=== PATIENT | female | born 1985 | race Caucasian/White ===

== ENCOUNTER 2022-11-08 08:23 | Outpatient (CLI) | payer BC, SELFPAY ==
[2022-11-08 15:15] LABS: Chloride* 107 mmol/L (96-114)
[2022-11-08 15:16] LABS: Potassium* 4.2 mmol/L (3.6-5.1); Sodium* 140 mmol/L (135-149)
[2022-11-08 15:18] LABS: Carbon Dioxide* 25 mmol/L (20-32); Cholesterol* 134 mg/dL (90-199); Creatinine* 0.7 mg/dL (0.5-1.5); Estimated Glomerular Filt Rate 114 ml/min
[2022-11-08 15:19] LABS: Blood Urea Nitrogen* 14 mg/dL (5-24); Calcium* 9.1 mg/dL (8.4-10.6); Glucose* 91 mg/dL (60-115); HDL Cholesterol* 56 mg/dL (>=50); LDL Cholesterol Calculated 64 mg/dL (<100); Triglycerides* 71 mg/dL (40-149)
== END 2022-11-08 08:24 | disposition home or self-care (01) ==
PROVIDERS: PCP Family Medicine; Visit Provider Family Medicine
DX: E03.9 Hypothyroidism, unspecified (principal); Z13.6 Encounter for screening for cardiovascular disorders
CPT/HCPCS: 80048; 80061; 84443

== ENCOUNTER 2023-04-24 08:14 | Outpatient (CLI) | payer BC, SELFPAY | END 2023-04-24 08:15 | disposition home or self-care (01) | LOC: NFLDREF 15:43 | PROVIDERS: PCP Family Medicine; Referring Provider Family Medicine; Visit Provider Family Medicine | DX: E03.9 Hypothyroidism, unspecified (principal) | CPT/HCPCS: 84443 ==

== ENCOUNTER 2024-05-13 09:14 | Outpatient (CLI) | payer BC, SELFPAY | END 2024-05-13 09:15 | disposition home or self-care (01) | PROVIDERS: PCP Family Medicine; Visit Provider Family Medicine | DX: Z00.00 Encounter for general adult medical examination without abnormal findings (principal); E03.9 Hypothyroidism, unspecified; E66.09 Other obesity due to excess calories; K43.9 Ventral hernia without obstruction or gangrene; Z13.9 Encounter for screening, unspecified | CPT/HCPCS: 80048; 80061; 84443 ==

== ENCOUNTER 2025-01-18 10:14 | Outpatient (CLI) | payer BC, SELFPAY ==
[2025-01-18 14:09] LABS: Clue Cells <20% Clue Cells Seen (None Seen); Trichomonas No Trichomonas Seen (None Seen); Yeast No Yeast Seen (None Seen)
== END 2025-01-18 10:15 | disposition home or self-care (01) ==
LOC: FBOREF 10:57
PROVIDERS: PCP Family Medicine; Visit Provider Family Medicine
DX: N89.8 Other specified noninflammatory disorders of vagina (principal)
CPT/HCPCS: 87210

== ENCOUNTER 2025-08-16 11:29 | Outpatient (CLI) | payer BC, SELFPAY | END 2025-08-16 11:30 | disposition home or self-care (01) | LOC: FBOREF 11:29 | PROVIDERS: PCP Family Medicine; Visit Provider Family Medicine | DX: R53.83 Other fatigue (principal) | CPT/HCPCS: 84439; 84443 ==

== ENCOUNTER 2025-08-23 13:40 | Outpatient (CLI) | payer BC, SELFPAY ==
--- NOTE | 2025-08-23 14:00 | CRLHL7_ITS ---
For Patients: As a result of the Cures Act, medical imaging exams and procedure reports are released immediately into your electronic medical record. You may view this report before your referring provider. If you have questions, please contact your health care provider. BILATERAL DIGITAL SCREENING MAMMOGRAM WITH COMPUTER-AIDED DETECTION AND TOMOSYNTHESIS CLINICAL HISTORY: Routine screening exam. COMPARISON: 10/30/2021, 10/24/2021. TECHNIQUE: Digital mammogram in CC and MLO projections including computer-aided detection (CAD). Tomosynthesis was used in this interpretation. BREAST COMPOSITION: There are scattered areas of fibroglandular density. FINDINGS: RIGHT Breast: Nodular density within the lower outer quadrant 6 cm from the nipple. LEFT Breast: No suspicious findings. IMPRESSION: RIGHT breast asymmetry/mass. RECOMMENDATIONS: Additional mammographic views of the RIGHT breast including 3D spot-compression CC/MLO. RIGHT breast ultrasound may also be required. The [facility] will contact the patient. A lay language report of this examination will be provided to the patient. BI-RADS Category 0: Incomplete: Need Additional Imaging Evaluation Dictated by Barry Mac MD @ 08/24/2025 9:09:24 AM DW/Dictated by: Barry Mac MD @ 08/24/2025 9:09:00 AM (Electronically Signed)
--- NOTE | 2025-08-23 14:45 | CRLHL7_ITS ---
For Patients: As a result of the Century Cures Act, medical imaging exams and procedure reports are released immediately into your electronic medical record. You may view this report before your referring provider. If you have questions, please contact your health care provider. INDICATION: ABNORMAL UTERINE AND VAGINAL BLEEDING COMPARISON: None. TECHNIQUE: 2D becerra-scale and color Doppler images were acquired of the pelvis using a transabdominal and transvaginal approach. Transvaginal imaging performed to better visualize the endometrial stripe and ovaries. FINDINGS: Sonographic images demonstrate a normal size and smooth outer contour of the uterus. Uterus measures 9.8 cm in length by 5.5 cm in AP diameter by 5.2 cm in transverse dimension. The myometrium has a normal uniform echotexture. The endometrial lining measures 18.2 mm in composite thickness. The right ovary measures 5.2 x 2.2 x 3.6 cm in size and the left ovary measures 3.4 x 1.7 x 2.4 cm. The ovaries demonstrate normal arterial and venous blood flow on color Doppler analysis. There are no suspicious fluid collections within the cul-de-sac. Hypoechoic left ovarian cyst measures 3.4 x 1.7 x 2.4 cm. IMPRESSION: Endometrial thickness is 18.2 millimeters. No uterine fibroid. Benign left ovarian cyst measures 3.4 cm. Dictated by Barry Mac MD @ 08/23/2025 3:08:02 PM (Electronically Signed)
== END 2025-08-23 13:41 | disposition home or self-care (01) ==
LOC: MAMMO 13:40
PROVIDERS: PCP Family Medicine; Visit Provider Family Medicine
DX: Z12.31 Encounter for screening mammogram for malignant neoplasm of breast (principal); N63.10 Unspecified lump in the right breast, unspecified quadrant; N93.9 Abnormal uterine and vaginal bleeding, unspecified; R93.89 Abnormal findings on diagnostic imaging of other specified body structures
CPT/HCPCS: 76830; 76856; 77063; 77067

== ENCOUNTER 2025-09-03 09:37 | Outpatient (CLI) | payer BC, SELFPAY ==
--- NOTE | 2025-09-03 09:45 | CRLHL7_ITS ---
For Patients: As a result of the Cures Act, medical imaging exams and procedure reports are released immediately into your electronic medical record. You may view this report before your referring provider. If you have questions, please contact your health care provider. RIGHT DIAGNOSTIC MAMMOGRAM WITH TOMOSYNTHESIS RIGHT BREAST ULTRASOUND CLINICAL HISTORY: RIGHT breast mass/asymmetry. COMPARISON: 08/23/2025, 10/30/2021, 10/24/2021. TECHNIQUE: Digital RIGHT mammogram in two projections. Tomosynthesis was used in this interpretation. Real-time ultrasound imaging of RIGHT breast with imaging documentation. Scanning was performed by both the technologist and the radiologist. BREAST COMPOSITION: The breasts are heterogeneously dense, which may obscure small masses. FINDINGS: 3D spot compression CC/MLO RIGHT breast mammogram images submitted. Persistent nodular density within the lower outer quadrant. No architectural distortion. Stable fibroadenoma in the upper-outer quadrant. Targeted RIGHT breast ultrasound performed at 7 o`clock, 6 cm from the nipple. In this location there is a solid hypoechoic nodule with circumscribed margins which measures 2.8 x 1.2 x 1.8 cm. The morphology is similar to the previously biopsied fibroadenoma in the upper-outer quadrant. IMPRESSION: Benign fibroadenoma RIGHT breast 7 o`clock, 6 cm from the nipple, measuring 2.8 cm. RECOMMENDATIONS: Routine screening mammography. A lay language report of this examination will be provided to the patient. BI-RADS Category 2: Benign Dictated by Barry Mac MD @ 09/03/2025 11:51:52 AM /sp SP/Dictated by: Barry Mac MD @ 09/03/2025 11:51:00 AM (Electronically Signed)
--- NOTE | 2025-09-03 10:15 | CRLHL7_ITS ---
For Patients: As a result of the Century Cures Act, medical imaging exams and procedure reports are released immediately into your electronic medical record. You may view this report before your referring provider. If you have questions, please contact your health care provider. PLEASE SEE RIGHT BREAST DIAGNOSTIC MAMMOGRAM PERFORMED SAME DAY. CRL:sp SP/Dictated by: Barry Mac MD @ 09/03/2025 11:49:00 AM (Electronically Signed)
== END 2025-09-03 09:38 | disposition home or self-care (01) ==
LOC: MAMMO 09:37
PROVIDERS: PCP Family Medicine; Visit Provider Family Medicine
DX: N63.10 Unspecified lump in the right breast, unspecified quadrant (principal); R92.333 Mammographic heterogeneous density, bilateral breasts; R92.8 Other abnormal and inconclusive findings on diagnostic imaging of breast
CPT/HCPCS: 76642; 77065; G0279

== ENCOUNTER 2025-09-06 10:25 | Outpatient (CLI) | payer BC, SELFPAY | END 2025-09-06 10:26 | disposition home or self-care (01) | PROVIDERS: PCP Family Medicine; Visit Provider Family Medicine | DX: Z01.818 Encounter for other preprocedural examination (principal); L40.9 Psoriasis, unspecified | CPT/HCPCS: 80048; 85025 ==

== ENCOUNTER 2025-09-07 06:27 | Day surgery (SDC) | payer BC, SELFPAY ==
[2025-09-07] VITALS (20 sets, daily range): BP systolic 95–112; BP diastolic 58–68; PULSE 69–115; RESP 14–20; TEMP 36.4–37.2; O2SAT 94–100; BMI 29.5
[2025-09-07] MEDS: SODIUM CHLORIDE 0.9 % (FLUSH) 10 ML SYRINGE IVF (07:34)
[2025-09-07] MEDS: LACTATED RINGERS 1000 ML 1,000 ML 100 ML IV ×3 (07:34→12:54)
[2025-09-07 07:41] LABS: Hemoglobin* 13.3 gm/dL (12.0-16.0)
[2025-09-07 07:44] LABS: Ur HCG Qualitative* Negative (Negative)
[2025-09-07] MEDS: GABAPENTIN 600 MG TABLET PO (07:45)
[2025-09-07] MEDS: ACETAMINOPHEN 500 MG TABLET 1000 MG PO ×2 (07:45→15:04)
[2025-09-07] MEDS: SCOPOLAMINE 1 MG/3 DAY PATCH 1 PATCH TRANSDERMA (07:45)
[2025-09-07 07:51] LABS: Creatinine* 0.7 mg/dL (0.5-1.5); Est. Creatinine Clearance* 92.25; Estimated Glomerular Filt Rate 112 ml/min
--- NOTE | 2025-09-07 08:44 | W.PM.H&PU ---
History & Physical Update History & Physical Update H&P Reviewed and patient assessed: No changes noted
--- NOTE | 2025-09-07 08:44 | W.PM.GYNPROC ---
Procedure Note Time Seen by Provider: 09:00 Date of procedure: 09/07/25 Will [facility] bill your pro fee for this procedure?: Yes Pre-op diagnosis: Abnormal uterine bleeding, chronic pelvic pain, pelvic organ prolapse. Post-op diagnosis: Same Procedure: Laparoscopic assisted vaginal hysterectomy, bilateral salpingectomy, bilateral uterosacral ligament suspension, posterior colporrhaphy, perineorrhaphy, cystoscopy. Anesthesia: GETA Complications: None Surgeon: Kleber Buchanan MD Plate Stacker Hand: Marlene Clark Estimated blood loss (mL): 50 IV fluids (mL): 2,000 Urine Output (mL): 200 Pathology: specimen obtained, sent to pathology (Uterus, bilateral fallopian tubes ) Condition: stable Disposition: floor Findings: Normal external genitalia. Uterine prolapse grade 3. Anterior vaginal wall prolapse grade 2, posterior vaginal wall prolapse grade 2. Intra abdominal survey: grossly normal intestine, liver, stomach, appendix. Grossly normal bilateral fallopian tubes and ovaries, a small hemorrhagic cyst of the left ovary noted of about 1-2 cm. Uterus of about 8-9cm. No evidence of pelvic endometriosis, no pelvic adhesions. Cystoscopy completed twice, both times bladder mucosa found intact w/o evidence of suture material and bilateral ureteral jets noted. Procedure Description: DESCRIPTION OF PROCEDURE: After obtaining informed consent, the patient was taken to the operating room where general anesthesia was obtained without difficulty. She was prepared and draped in the normal sterile fashion in the low dorsal lithotomy position. A Rivera catheter was inserted into the bladder and left to drain by gravity. A medium Graves open-sided speculum was introduced into the vagina. The cervix was visualized and a Hulka manipulator was introduced easily. I then changed gloves and my attention was turned to the abdomen. The superior aspect of the umbilical fold was injected with 1% lidocaine with epi and 0.25% Bupivacaine. A 5 mm vertical incision was then made within the umbilical fold using a scalpel. A direct entry technique was used, a 5 mm laparoscopic port with CO2 gas set at 5mmHg was introduced under direct visualization. The trocar was removed leaving the sleeve in place. The CO2 gas flow was turned to high flow to achieve pneumoperitoneum. The 5 mm laparoscope was used then to carefully inspect the abdomen and pelvis with findings noted above. Pictures were taken for documentation purposes. The patient was placed in Trendelenburg positioning. Two additional ports were placed in the right and left lower quadrants under direct visualization after first anesthetizing the skin and fascia. Once the ports were in place, the pelvis was thoroughly inspected for evidence of endometriosis implants, picture taken for documentation purposes, no evident endometriosis implants noted in the pelvis. Start of hysterectomy then was continued as followed. The left tube was elevated with a graspers. The Thunderbeat bipolar device was used to dissect the tube from it's ovarian and broad ligament and cornual attachments before removing the tube through a lower port. Excellent hemostasis was obtained. The left utero-ovarian ligament was then sealed and transected in a wide swath with the Thunderbeat. Hemostasis secured. The left round ligament was then sealed in a wide swath and transected with the Thunderbeat, excellent hemostasis was obtained. The right tube was elevated with a graspers. The Thunderbeat bipolar device was used to dissect the tube from it's ovarian and broad ligament and cornual attachments before removing the tube through a lower port. Excellent hemostasis was obtained. The right utero-ovarian ligament sealed and transected in a wide swath with the Thunderbeat device. Hemostasis secured. The right round ligament was then sealed in a wide swath and transected with the Thunderbeat, excellent hemostasis was obtained. At this time, procedure was continued vaginally. The gas was released from the abdomen, ports were left in place for ease of intra abdominal access if needed. The abdomen was covered with sterile drape. A weighted speculum was placed into the vagina and a small [place] placed anteriorly. The anterior and posterior lip of the cervix grasped with thyroid Kayla clamps. With outward traction applied diluted Vasopressin was injected circumferentially into the cervicovaginal junction for hydrodissection purposes. Afterwards a circumferential incision was made with the scalpel at the cervical vaginal junction. Incision was carried down to the para cervical fascia, allowing the cervix to separate from the vagina mucosa. Minimal bleeding encountered. Separation of the anterior vaginal mucosa from uterus performed bluntly with moist gauze and performed until peritoneal reflection identified, this was picked up and entered sharply with Chacon scissors. A right angle retractor was inserted into the vesicouterine space. Attention was then placed to the posterior vagina, where blunt dissection also utilized until identification of the posterior peritoneum, this was grasped with pickups and entered sharply with Cosmo scissors with the tip pointing to the uterus. Clear peritoneal fluid was noted. The weighted speculum was removed in a long Bertrand speculum was inserted into the cul-de-sac. The uterosacral ligaments were clamped with Shana clamps, cut, and suture ligated. Follow-up were the cardinal and uterine vessels were identified, clamped, cut and suture ligated. Hemostasis secured. A small portion of the broad ligaments were also clamped, cut and suture ligated bilaterally and completed hysterectomy. The uterus was removed through the vagina. Again, hemostasis noted. Packing of the intestines performed utilizing surgical laps and starting on the patient's right, previously tagged uterosacral ligament was kept on tension and two 0 PDS sutures where anchored into the uterosacral ligament approximately 1 and 2cm above the level of the ischial spine. The same procedure was performed on the left side. Cystoscopy was then performed and PDS sutures where held on tension while cystoscopy was performed, and bilateral brisk ureteral efflux was confirmed. The uterosacral ligament suspension sutures were then placed through the vaginal apex bilaterally and held. At this time it was noted that the anterior vaginal wall was actually well supported, had normal rugae and might not need a repair after tying down apical suspension sutures. So decision was made to tie down the uterosacral ligament sutures thus suspending the vaginal apex and close the vaginal cuff. The vaginal cuff was closed with Vicryl 2-0 in a horizontal fashion in multiple interrupted figure of 8 sutures. Cystoscopy was repeated and bladder inspected. No lesions, tumors, stones or foreign objects in bladder. Bilateral ureteral jets were visualized. With this suspension it was evident the reduction of the anterior vaginal wall prolapse, decision was made not to perform an anterior repair. Decision was made to complete a posterior repair, noted to still be significant after suspension. Attention was then placed to posterior vaginal wall. The posterior hymen was grasped with 2 Allis clamps to allow entry of three fingers. Midline vagina was marked utilizing Allis clamp. The area of anticipated dissection was injected with dilute vasopressin. A midline incision was made with scalpel from the perineum to the proximal border of the posterior wall defect. Vaginal epithelium was then dissected off of the underlying rectovaginal connective tissue. The rectovaginal fibromuscular layer was then plicated in the midline utilizing interrupted sutures of Vicryl 2-0. The excess vaginal tissue was trimmed. Vaginal epithelium reapproximated with Vicryl 2-0 in a continuous interlocking fashion. A perineorrhaphy followed. Perineum infiltrated with dilute vasopressin and scalpel utilized to create an inverted triangle shape incision between Allis clamps at the level of the hymen as the base and the tip at midline perineum. This skin was bluntly dissected. The bulbocavernous muscles were plicated in the midline with Vicryl 2-0, followed by the transverse perineal muscles. The midline incision was then closed in a running fashion using Vicryl 2-0. Hemostasis secured. No need for vaginal packing noted. All instruments were removed from the vagina, and all counts were correct x2. Attention was once again turned to the abdomen. The abdomen and pelvis were again irrigated and inspected for hemostasis. Evangelista was placed over excision sites to further secure hemostasis. All instruments were then removed under direct visualization. Pneumoperitoneum was allowed to escape. The skin at all port sites was closed in a subcuticular fashion with 4-0 Monocryl. LiquiBand was then placed over the incisions. The patient tolerated the procedure well. Sponge, lap, needle, and instrument counts were reported as correct x2. The patient was taken to the recovery room awake and in stable condition. She did receive Ancef 2 g at start of procedure and a second dose was repeated after 3 hours in surgery. PATHOLOGY SPECIMEN(S): Uterus,bilateral fallopian tubes.
[2025-09-07] MEDS: LIDOCAINE 1%-EPI 1:100,000 20 ML INFILTRATI (09:29)
[2025-09-07] MEDS: BUPIVACAINE 0.25% 30 ML INJECTION (09:29)
[2025-09-07] MEDS: 0.9% SODIUM CHL 50 ML VIAL INJECTION (10:00)
[2025-09-07] MEDS: CEFAZOLIN 2 GM INJ IVP (12:06)
--- NOTE | 2025-09-07 13:24 | P.ANES_ITS ---
Anesthesia Charges Start Date/Time Anesthesia Start Date: 09/07/25 Anesthesia Start Time: 08:46 Stop Date/Time Anesthesia Stop Date: 09/07/25 Anesthesia Stop Time: 13:26 Coding CPT Codes CPT Codes: ANESTH SURG LOWER ABDOMEN - 33102 ([id number]) P2 - PATIENT W/MILD SYST DISEASE, QK - ONLINE MERCHANT 2-4 CNCRNT ANES PROC, QX - REGIONAL EDUCATION COORDINATOR SVC W/ MD MED DIRECTION
--- NOTE | 2025-09-07 13:24 | W.ANESCHARGE ---
Anesthesia Charges Start Date/Time Anesthesia Start Date: 09/07/25 Anesthesia Start Time: 08:46 Stop Date/Time Anesthesia Stop Date: 09/07/25 Anesthesia Stop Time: 13:26 Coding CPT Codes CPT Codes: ANESTH SURG LOWER ABDOMEN - 19923 ([id number]) P2 - PATIENT W/MILD SYST DISEASE, QK - TANNING SOLUTION MAKER 2-4 CNCRNT ANES PROC, QX - FACILITIES CUSTODIAN SVC W/ MD MED DIRECTION
--- NOTE | 2025-09-07 13:25 | P.ANES_ITS ---
Anesthesia Charges Start Date/Time Anesthesia Start Date: 09/07/25 Anesthesia Start Time: 08:46 Stop Date/Time Anesthesia Stop Date: 09/07/25 Anesthesia Stop Time: 13:26 Coding CPT Codes CPT Codes: ANESTH SURG LOWER ABDOMEN - 00900 ([id number]) P2 - PATIENT W/MILD SYST DISEASE, QK - NECKTIE TURNER 2-4 CNCRNT ANES PROC, QX - CHEF DE FROID SVC W/ MD MED DIRECTION
--- NOTE | 2025-09-07 13:25 | W.ANESCHARGE ---
Anesthesia Charges Start Date/Time Anesthesia Start Date: 09/07/25 Anesthesia Start Time: 08:46 Stop Date/Time Anesthesia Stop Date: 09/07/25 Anesthesia Stop Time: 13:26 Coding CPT Codes CPT Codes: ANESTH SURG LOWER ABDOMEN - 56160 ([id number]) P2 - PATIENT W/MILD SYST DISEASE, QK - SITE OPERATIONS MANAGER 2-4 CNCRNT ANES PROC, QX - SEWER PIPE CLEANER SVC W/ MD MED DIRECTION
--- NOTE | 2025-09-07 13:26 | P.NB_ITS ---
Nerve Block Nerve Block Time Seen by Provider: 13:15 Date Seen: 09/07/25 Type of block requested by surgeon for post-operative analgesia: TAP Side: bilateral Time out performed: Yes Verification of patient name: Yes Verification of date of : Yes Site marking: not applicable Name of person performing procedure: Renetta Continuous monitoring Was continuous monitoring of O2 sat, B/P, satellite project site monitor, recorded every 15 minutes?: Yes Procedure Checklist: sterile prep, needles and gloves Ultrasound guided. Images saved: Yes Medications given in 5ml increments after negative aspiration: Marcaine %: 0.25 mL: 30 Needle gauge: 20 and Exparel mL: 10 Patient tolerated procedure well: Yes Block Charges Block Charge (with Pro Fee): TAP Bilateral Use of Ultrasound Machine for Block: Yes- US Guidance/pain block
--- NOTE | 2025-09-07 13:28 | SUR.OPER ---
2 skin tears on lower abdomen documented on Intraoperative record.
[2025-09-07] MEDS: LACTATED RINGERS 1000 ML 1,000 ML 40 ML IV (15:08)
--- NOTE | 2025-09-07 18:33 | PC.NURSE ---
Pt came to unit at 1400. She is doing well. A&Ox4. VSS. Pt is tolerating oral intake. Pain is controlled well with PRN medications and heat. Pt is having adequate urine output in wren. No bleeding noted in brief. Surgical dressings remain clean, dry and intact. Pt's is at bedside.
[2025-09-07] MEDS: 0.9 % SODIUM CHLORIDE 500 ML 500 ML IV (22:22)
[2025-09-08 01:10] VITALS: BP 95/65; PULSE 80; RESP 16; TEMP 36.9; O2SAT 99
[2025-09-08] MEDS: LACTATED RINGERS 1000 ML 1,000 ML 125 ML IV (01:17)
[2025-09-08 05:51] VITALS: BP 93/54; PULSE 82; RESP 16; TEMP 37.1; O2SAT 98
--- NOTE | 2025-09-08 06:01 | PC.NURSE ---
Dr. Rodriguez updated with latest hypotensive B/P reading. No new orders.
[2025-09-08 06:37] LABS: Hemoglobin* 10.7 gm/dL (12.0-16.0)
[2025-09-08 06:49] LABS: Creatinine* 0.7 mg/dL (0.5-1.5); Est. Creatinine Clearance* 92.25; Estimated Glomerular Filt Rate 112 ml/min
[2025-09-08] MEDS: LEVOTHYROXINE 125 MCG TABLET PO (06:49)
--- NOTE | 2025-09-08 07:55 | PC.NURSE ---
End of shift note [id number]: Pt A&Ox4 and able to make needs known. Pain to abdomen managed with scheduled pain medication- see EMAR. Pt has been denying nausea and tolerating regular diet. Rivera cath removed this morning per order. Three surgical incisions to abdomen HIGH SCHOOL DIRECTOR with surgical glue in place. Small amount of dried blood noted from vagina overnight. Dr. Rodriguez was updated regarding pt's blood pressures trending lower this morning- no new orders given. Pt remains on LR per order. IS education provided. Assist of 2 when getting out of bed for safety due to blood pressures trending lower. Call light within reach.
--- NOTE | 2025-09-08 07:59 | P.DS_ITS ---
DS: Providers Provider Date Seen: 09/08/25 Primary care physician: Barry Clark MD Attending Physician on discharge: Ayala Buchanan MD Date of Discharge: 09/08/25 DS: Diagnosis Discharge Diagnosis (1) S/P hysterectomy: Status: Acute Problem details: Laparoscopic assisted vaginal hysterectomy, bilateral salpingectomy, bilateral uterosacral ligament suspension, posterior colporrhaphy, perineorrhaphy, cystoscopy DIRECTOR OF RECRUITMENT-Discharge Summary Hospital Course Hospital Course Narrative: Patient is a 40 year old admitted on 09/07/2025 for elective surgery. Indication for surgery: Abnormal uterine bleeding, chronic pelvic pain, pelvic organ prolapse. Intraoperative findings were notable for no gross evidence of endometriosis in the pelvis, grossly normal bilateral fallopian tubes and uterus, small left hemorrhagic ovarian cyst, uterine prolapse grade 3, anterior and posterior vaginal prolapse grade 2. She had an uncomplicated surgery. Postoperative course has been uneventful. Vitals have been stable. She has remained afebrile. Today, on postoperative day 1, she reports the pain is well controlled. She has been able to ambulate Without difficulty. She is tolerating regular diet. She is passing flatus. Rivera catheter has been removed, and she is voiding without difficulty. Time Spent with Patient Time attestation: Total time spent providing and/or coordinating discharge services: Time spent: Less than 30 minutes DIRECTOR OF RECRUITMENT - Exam Physical Exam: Vital signs: Temp Pulse Resp BP Pulse Ox O2 Del Method 98.7 F 82 16 93/54 L 98 Room Air 09/08/25 05:51 09/08/25 05:51 09/08/25 05:51 09/08/25 05:51 09/08/25 05:51 09/08/25 05:51 Narrative: VITAL SIGNS: As noted above. GENERAL APPEARANCE: Alert, cooperative female in no acute distress. MOOD & AFFECT: Normal. HEART: Regular rate and rhythm without murmurs. LUNGS: Lungs are clear to auscultation bilaterally. No crackles, wheezes, or rhonchi. ABDOMEN: Soft, mildly distended, positive bowel sounds in all quadrants, slightly tender to palpation of lower abdominal quadrants. : Minimal swelling, minimal spotting noted. EXTREMITIES: Nonedematous. Well perfused. Nontender. NEURO: Intact. DIRECTOR OF RECRUITMENT - DS: Data Data Completed and Pending Labs on day of discharge: Labs from last 24 hours 09/08/25 09/07/25 05:50 07:25 Hgb 10.7 L Creatinine 0.7 Estimated Creat Clear 92.25 Estimated GFR 112 Blood Type A Positive Antibody Screen NEGATIVE Procedures Procedures: Procedures Operation Date: 09/07/25 08:30 Actual Procedure Side Surgeon p Laparoscopic Assisted Vaginal Hysterectomy, Bilateral Salpingectomy, Bilateral Uterosacral Ligament Suspension, Posterior Colporrhaphy, Perineuorhaphy,Cystoscopy Ayala Buchanan MD Complications: none Discharge Plan Discharge Disposition: Home w/ Parent or Adult Discharging Surgeon: Ayala Buchanan Follow-Up Appointment: 2 weeks at [facility]-scheduled Prescriptions: New acetaminophen 500 mg Tablet 1,000 mg PO Q6H PRNQty: 30 0RF docusate sodium 100 mg Capsule 100 mg PO BID PRN (Reason: Constipation) Qty: 30 0RF ibuprofen 600 mg Tablet 600 mg PO Q6H Qty: 30 0RF hydromorphone [Dilaudid] 2 mg tablet 2 mg PO Q4-6H PRN (Reason: pain) Qty: 10 0RF Continued triamcinolone acetonide 0.1 % cream 1 applic topical BID Qty: 454 1RF tirzepatide 2.5 mg/0.5 mL pen injector 2.5 mg subcut QWEEK Rx Instructions: for 4 weeks levothyroxine 125 mcg tablet 125 mcg PO QDAY Qty: 90 3RF fluocinonide 0.05 % solution 1 applic topical QDAY Qty: 60 1RF Activity Level: Activity as Tolerated and No Weight Bearing Activity Detail: Nothing vaginally for 6 weeks, no lifting more than 15-20 pounds for 6 weeks Discharge Diet: Regular Patient Instructions: Scopolamine (Absorbed through the skin) (Transderm Scop), NH+C Laparoscopic Hysterectomy Follow-up: Barry Clark MD [Primary Care Provider, Family Practice] Discharge Orders: Discharge Order (Routine); Ordered 09/08/25 Ordered By: Ayala Buchanan
[2025-09-08] MEDS: IBUPROFEN 600 MG TABLET PO (09:58)
[2025-09-08 10:00] VITALS: BP 95/52; PULSE 71; RESP 16; TEMP 36.9; O2SAT 98
[2025-09-08] MEDS: ACETAMINOPHEN 500 MG TABLET 1000 MG PO (12:46)
--- NOTE | 2025-09-08 13:12 | PC.NURSE ---
Pt assist of 1 w/standby, pain reported 3-6/10 throughout shift. IV removed cath intact. D/C education given to pt and spouse written and verbal. Pt left facility via wheelchair accompanied by spouse.
== END 2025-09-08 12:55 | disposition home or self-care (01) ==
LOC: SS 06:29 → MEDSURG 06:30
PROVIDERS: PCP Family Medicine; Visit Provider Obstetrics & Gynecology
PROC: 0UT9FZZ Resection of Uterus, Via Natural or Artificial Opening With Percutaneous Endoscopic Assistance (ICD-10-PCS; CPT 58552; principal; 2025-09-07 08:30)
DX: N81.3 Complete uterovaginal prolapse (principal); N93.8 Other specified abnormal uterine and vaginal bleeding; N83.202 Unspecified ovarian cyst, left side; N72 Inflammatory disease of cervix uteri; G89.18 Other acute postprocedural pain; G89.29 Other chronic pain; R10.20 Pelvic and perineal pain unspecified side
CPT/HCPCS: 58552; 57283; 57250; 00840; 36415; 64488; 76942; 81025; 82565; 85018; 86850; 86900; 86901; A4314; A9270; J0665; J0666; J0690; J1100; J1171; J1885; J2250; J2371; J2405; J2704; J2710; J3010; J3475; J3490; J7030; J7120

== ENCOUNTER 2025-09-17 12:55 | Outpatient (CLI) | payer BC, SELFPAY ==
[2025-09-17 15:00] LABS: Bacterial Vaginosis* POSITIVE (Negative); Candida glab/krus NOT DETECTED (No Detected)
== END 2025-09-17 12:56 | disposition home or self-care (01) ==
LOC: NFLDREF 12:55
PROVIDERS: PCP Family Medicine; Visit Provider Obstetrics & Gynecology
DX: N89.8 Other specified noninflammatory disorders of vagina (principal)
CPT/HCPCS: 81513; 87481; 87661

== ENCOUNTER 2025-09-24 10:20 | Emergency (ER) | payer BC, SELFPAY ==
--- OUTSIDE RECORDS SUMMARY | 2025-09-24 10:22 | XMS_ITS | Clinical Summary ---
Author Organization [employer] [facility] [employer] [facility] Address [address] [place] [address] Care Team Providers Care Senior It Auditor Name Role Phone Abhijeet Jaqeuz MD Primary Care Provider [phone] Allergies No known active allergies Medications clobetasol topical foam 0.05% (OLUX) 0.05 % foamIndications:Sc alp psoriasis Apply topically to affected area(s) 2 times daily. 100 g 12 6 Active Betamethasone Valerate 0.12 % foamIndications:Sc alp psoriasis Apply topically to affected area(s) 2 times daily. 50 g 12 6 Active minocycline (MINOCIN) 100 mg tablet TK ONE T PO BID FOR 1 MONTH WITH NON DAIRY FOOD AND WATER. SUPPLEMENT WITH PROBIOTIC. 1 9 Active ondansetron (ZOFRAN ODT) 8 mg disintegrating tabletIndications: Nausea Place 1 tablet on the tongue every 8 hours if needed for Nausea/Vomitin g. 30 tablet 9 Active levothyroxine (SYNTHROID) 100 mcg tabletIndications: Hypothyroidism, unspecified type Take 1 tablet by mouth before breakfast. 90 tablet 0 Active Active Problems Problem Noted Date Diagnosed Date Hypothyroidism 06/25/2016 ASCUS of cervix with negative high risk HPV 11/2015 Overview (07/03/2016): 06/2016 Plan: Pap/HPV 06/2019 Ventral hernia without obstruction or gangrene Resolved Problems Problem Noted Date Diagnosed Date Resolved Date Thyroid activity decreased 05/05/2015 0 06/25/2016 Thyroid activity decreased 05/04/2015 0 05/05/2015 Routine general medical exam ination at a health care facility 11/04/2013 06/25/2016 Supervision of other normal 01/24/2013 11/04/2013 Overview (09/09/2013): Planned and happy. TDaP - 02/17/13, Flu 08/03/13 Having a boy - Emmanuel GBBS - negative Lumbago 11/11/2007 03/28/2010 Encounters Date Type Department Care Team Description 09/08/2025 Lab Requisition [facility] [phone] Ayala Buchanan MD 09/01/2025 Lab Requisition [facility] [phone] Ayala Buchanan MD from Last 3 Months Immunizations Immunization Administration Dates Next Due Influenza A (H1N1), Inactivated 08/31/2009 Influenza, IIV3 (Age >=3 years) 08/03/2013,08/04 Influenza, IIV4 11/10/2018,08/12/2017,09/17/2014 Influenza, IIV4 (=>6mos) MDV 10/07/2019 MMR 02/15/1998 Td (Age >=7 Years) 08/04/2011,02/15/1998 Tdap 02/17/2013 Family History Medical History Relation Name Comments Cancer Father Braden Thyroid Cancer Thyroid Disease Father Braden Cancer-breast Mother Macey Cancer-colon Mother Macey Diagnosed at 62 Diabetes Mother Macey Arthritis Sister Divina Rheumatoid Relation Name Status Comments Father Braden Mother Macey Sister Divina Social History Tobacco Use Types Packs/Day Years Used Date Smoking Tobacco: Never Smokeless Tobacco: Never Alcohol Use Standard Drinks/Week Comments No 0 (1 standard drink = 0.6 oz pur e alcohol) PHQ-2 Answer Date Recorded PHQ-2 Score 0 02/25/2019 Comments No Sex and Gender Information Value Date Recorded Sex Assigned at Not on file Legal Sex Female 5:23 AM DIRECTOR OF SLOT OPERATIONS Gender Identity Not on file Sexual Orientation Not on file Occupation Industry Job Start Date Job End Date Not on file Not on file Not on file Not on file Obstetrics History Para Term AB IAB SAB Ectopic Multiple Livin g Live Births 2 2 2 0 0 0 0 0 2 2 Date Outcome GA Total Labor Labor/2nd/3rd Weight Sex Type Anes PTL Dawn A1 A5 Name Clin 2009 Term 38w 2d 3.12 kg (6 lb 14 oz) F Vag Epidur al Livin g 8 9 Kirstie McInt yre Delivery Location:[facility] 2012 Term 39w 0d 3.23 kg (7 lb 2 oz) M Vag Epidur al Livin g 9 9 Cliff McInt yre Delivery Location:[facility] Last Filed Vital Signs Vital Sign Reading Time Taken Comments Blood Pressure 106/68 11/03/2019 3:17 PM DIRECTOR OF SLOT OPERATIONS Pulse 74 11/03/2019 3:17 PM DIRECTOR OF SLOT OPERATIONS Temperature 36.9 C (98.4 F) 11/03/2019 3:17 PM DIRECTOR OF SLOT OPERATIONS Respiratory Rate 16 11/03/2019 3:17 PM DIRECTOR OF SLOT OPERATIONS Oxygen Saturation 99% 11/03/2019 3:17 PM DIRECTOR OF SLOT OPERATIONS RA Inhaled Oxygen Concentration - - Weight 104 kg (229 lb 4.8 oz) 03/03/2019 6:49 AM CDT Height 163.8 cm (5' 4.5) 02/25/2019 8:43 AM CDT Body Mass Index 38.75 02/25/2019 8:43 AM CDT Plan of Treatment Health Maintenance Due Date Last Done Comments Hepatitis C screening for age 18-79 2003 Hepatitis B series for 19+ (1 of 3 - 19+ 3-dose series) 2004 HPV series for age 9-45 (1 - 3-dose SCDM series) 2012 BMI (ht and wt on same day) for age 18+ 02/26/2020 02/25/2019, 02/20/2019, 07/10/2018, Additional history exists Depression screening for age 12+ 02/26/2020 02/25/2019, 02/23/2019, 07/01/2017, Additional history exists Tetanus booster 02/17/2023 02/17/2013, 1011/2010, 02/15/1998 Influenza Vaccine (#1) 2025 9, 11/10/2018, 08/12/2017, Additional history exists Pap test for age 21-65 05/13/2027 4, 05/13/2024, 11/11/2020, Additional history exists RSV vaccine for adults or (1 - 1-dose 75+ series) 2060 HIV for age 15-65 Completed 02/17/2013, 08/01/2009 Pneumococcal series for age 6-49 Aged Out No longer eligible based on patient's age to complete this topic Procedures Procedure Name Priority Date/Time Associated Diagnosis Comments LAB TRACKING EVENT Routine 09/07/2025 9: 38 AM DIRECTOR OF SLOT OPERATIONS PATH TISSUE EXAM Routine 09/07/2025 9:38 AM DIRECTOR OF SLOT OPERATIONS LAB TRACKING EVENT Routine 09/01/2025 10 :55 AM CDT PATH TISSUE EXAM Routine 09/01/2025 10:5 5 AM CDT BATCH UNIT TREATER THIN PREP PAP SCREEN IMAGED Routine 05/13/2024 9:15 AM CDT ANTI HIV 1/2 Routine 02/17/2013 9:29 AM CDT Supervision of other normal (HC) from Last 3 Months or Most Recently Relevant to Health Maintenance Results * LAB TRACKING EVENT (09/07/2025 9:38 AM DIRECTOR OF SLOT OPERATIONS) Only the most recent of2 resultswithin the time period is included. Other (Other) Client Collect / Unknown 09/07/2025 9:38 AM DIRECTOR OF SLOT OPERATIONS 09/08/2025 7:35 AM DIRECTOR OF SLOT OPERATIONS us Ayala Buchanan MD LAB BILL ONLY Fi nal Result [facility] [address] [place] [address], * PATH TISSUE EXAM (09/07/2025 9:38 AM DIRECTOR OF SLOT OPERATIONS) Only the most recent of2 resultswithin the time period is included. Case Report Pathology Report Case: [id number] Authorizing Provider: Ayala Buchanan Collected: 09/07/2025 Ok Ellis MD Ordering Location: [facility] Received: 09/08/2025 1206 Pathologist: Lj Erwin MD Specimen: Uterus, and cervix 09/09/2025 5:14 PM DIRECTOR OF SLOT OPERATIONS [facility] Final Diagnosis A) UTERUS WITH CERVIX AND BILATERAL FALLOPIAN TUBES, TOTAL HYSTERECTOMY WITH BILATERAL SALPINGECTOMY: 1. Cervix: a. Endocervix and ectocervix b. Chronic cervicitis c. Negative for glandular neoplasia and squamous intraepithelial lesion 2. Endometrium: a. Proliferative endometrium b. Negative for hyperplasia and atypia 3. Myometrium: No significant histologic abnormality 4. Uterine serosa: No significant histologic abnormality 5. Fallopian tubes: a. No diagnostic abnormality b. Negative for malignancy 6. Uterine weight: 113 grams 09/09/2025 5:14 PM [facility] at 1714 DIRECTOR OF SLOT OPERATIONS Clinical Information AUB, prolapse 09/09/2025 5:14 PM [facility] Gross Description A) Received in formalin, labeled with the patient's name and uterus, cervix, and bilateral fallopian tubes, is a 113 gram (uterus and cervix weight only), 9.7 (fundus-cervix) by 5.5 (cornu-cornu) by 4.3 (anterior-posterio r) cm total hysterectomy and unattached unoriented bilateral fimbriated fallopian tubes specimen. The 4.6 cm long, 4.0 cm diameter cervix has a 1.8 cm cervical os. The ectocervical mucosa is smooth with a distinct squamocolumnar junction. The endocervical canal is patent. The endometrium is 0.3 cm thick. No endometrial lesions are identified. No myometrial lesions are identified. The myometrium is 1.7 cm thick. The serosa is smooth. Fallopian tube #1: 5.6 cm in length by 0.5 cm in diameter fimbriated fallopian tube. The serosal surface has a small amount of adhesions. The cut surface has a stellate lumen surrounded by unremarkable mucosa. Fallopian tube #2: 6.1 cm in length by 0.5 cm in diameter fimbriated fallopian tube. The serosal surface has a small amount of hemorrhagic adhesions the cut surface has a stellate lumen surrounded by unremarkable mucosa. Dough Raiser sections and entire fimbria are submitted: 1. Anterior cervix 2. Posterior cervix 3. Anterior uterine wall, full-thickness 4. Posterior uterine wall, full-thickness 5. Fallopian tube #1 and entire fimbria, packaging sales representative sections 6. Fallopian tube #2 and entire fimbria, packaging sales representative section Time and date in formalin: 1032 on 09/07/2025 TRS 09/08/2025 09/09/2025 5:14 PM DIRECTOR OF SLOT OPERATIONS [facility] Microscopic Description The final diagnosis is based on microscopic examination of appropriate sections of all specimens. 09/09/2025 5:14 PM DIRECTOR OF SLOT OPERATIONS [facility] Additional Information Interpreted at [facility] - [address], [place] [address] 09/09/2025 5:14 PM DIRECTOR OF SLOT OPERATIONS [facility] Other SPECIMEN FROM UTERUS / Unknown 09/07/2025 9:38 AM DIRECTOR OF SLOT OPERATIONS 09/08/2025 12:06 PM DIRECTOR OF SLOT OPERATIONS Ayala Buchanan MD PATHOLOGY/CYTOLOGY Final Result [facility] [address] [place] [address], [place] * BATCH UNIT TREATER THIN PREP PAP SCREEN IMAGED (05/13/2024 9:15 AM CDT) Case Report Gynecologic Cytology Report Case: [id number] Authorizing Provider: Barry Clark MD Collected: 05/13/2024 0915 Ordering Location: [facility] Received: 05/14/2024 1227 First Screen: Tom Brian Specimen: BATCH UNIT TREATER ThinPrep Vial Screening, Cervical 05/19/2024 3:12 PM CDT [facility] INTERPRETATION/ RESULT NEGATIVE FOR INTRAEPITHELIAL LESION OR MALIGNANCY (NIL) (none) 05/19/2024 3:12 PM CDT [facility] at 1512 CDT SPECIMEN ADEQUACY Satisfactory for evaluation Endocervical component present Obscuring Inflammation 05/19/2024 3:12 PM CDT [facility] HPV REQUEST HPV and PAP 05/19/2024 3:12 PM CDT [facility] Last Pap Date 11/11/2020 05/19/2024 3:12 PM CDT [facility] Last Pap Result NIL 3:12 PM CDT [facility] Abnormal Pap or Lee Bx in last 5 years No 05/19/2024 3:12 PM CDT [facility] Lee Bx Done Today No 05/19/2024 3:12 PM CDT [facility] Additional Information 05/19/2024 3:12 PM CDT [facility] Comment: Interpreted at [facility] - [address] [facility] [address], [place] [address] Automated Review Successful 05/19/2024 3:12 PM CDT [facility] Comment:Specimen processed s uccessfully by automated crib pad maker device, ThinPrep Imaging System, [employer] ANCILLARY TESTING BATCH UNIT TREATER HPV Ordered, Please see separate report 05/19/2024 3:12 PM CDT [facility] Note The pap test is a screening technique, not a diagnostic procedure. It is used primarily to screen for squamous cancers and precursor lesions. Published studies have shown that it is subject to both false negative and false positive results. The pap test should not be used as the sole means to diagnose or exclude pre-malignant and malignant lesions. 05/19/2024 3:12 PM CDT [facility] Other (Cervical) 05/13/2024 9:15 AM CDT 05/14/2024 12:27 PM CDT us Barry Clark MD PATHOLOGY/CYTOLOGY Final Result [facility] [address] [place] [address], [place] * ANTI HIV 1/2 (02/17/2013 9:29 AM CDT) ANTI HIV 1/2 Non-reacti ve [facility] Blood specimen (specimen) BLOOD SPECIMEN / Unknown 02/17/2013 9:29 AM CDT 02/17/2013 9:19 AM CDT Barry Clark MD SEND OUTS Final Re sult [facility] [place] [address] [address] [place] [address] from Last 3 Months or Most Recently Relevant to Health Maintenance Insurance ANDREY PELAEZ [id number] Advance Directives * Full Code (Latest Code Status on File) Date Activated Date Inactivated Comments 03/03/2019 6:36 AM 03/03/2019 2:16 PM Question Answer Comments Code Status Discussion: Not Discussed Care Teams Senior It Auditor Relationship Specialty Start Date End Date Abhijeet Jaquez MD [address] [facility] [place] [address] PCP - General Family Practice 11/10/18
--- OUTSIDE RECORDS SUMMARY | 2025-09-24 10:22 | XMS_ITS | Clinical Summary ---
Author Organization [facility] er Address [address] [place] [address] Care Team Providers Care Crusher Supervisor Name Role Phone None, Pcp Primary Care Provider Unavailabl e Allergies No known active allergies Active Problems Problem Noted Date Diagnosed Date COVID 10/14/2021 Social History Tobacco Use Types Packs/Day Years Used Date Smoking Tobacco: Never Assessed Comments Unknown Sex and Gender Information Value Date Recorded Sex Assigned at Not on file Legal Sex Female 3:58 PM ROCK DUST SPRAYER Gender Identity Not on file Sexual Orientation Not on file Last Filed Vital Signs Vital Sign Reading Time Taken Comments Blood Pressure 94/55 10/15/2021 3:55 PM ROCK DUST SPRAYER Pulse 68 10/15/2021 3:55 PM ROCK DUST SPRAYER Temperature 36.7 C (98.1 F) 10/15/2021 3:55 PM ROCK DUST SPRAYER Respiratory Rate 14 10/15/2021 3:55 PM ROCK DUST SPRAYER Oxygen Saturation 98% 10/15/2021 3:55 PM ROCK DUST SPRAYER Inhaled Oxygen Concentration - - Weight 104 kg (229 lb 4.5 oz) 10/15/2021 1:32 PM ROCK DUST SPRAYER Height 167.5 cm (5' 5.95) 10/15/2021 1:32 PM CS T Body Mass Index 37.07 10/15/2021 1:32 PM ROCK DUST SPRAYER Plan of Treatment Health Maintenance Due Date Last Done Comments Mammogram 1985 DTaP,Tdap,and Td Vaccines (3 - Td or Tdap) 02/17/2023 02/17/2013, 08/04/2011, 02/17/1998 Pap Smear 11/11/2023 11/11/2020 COVID-19 Vaccine ( season) 2025 Influenza Vaccine (#1) 2025 , 10/07/2019, 11/10/2018, Additional history exists HPV Vaccines Aged Out No longer eligi ble based on patient's age to complete this topic Pneumococcal Vaccine: Pediatrics (0 to 5 Years) and At-Risk Patients (6 to 49 Years) Aged Out No longer eligible based on patient's age to complete this topic Insurance [facility] Care Teams Crusher Supervisor Relationship Specialty Start Date End Date None, Pcp [address] [place] [address] PCP - General Healthcare Or Medical 10/15/21
[2025-09-24 10:34] VITALS: BP 117/70; PULSE 84; RESP 20; TEMP 37.1; O2SAT 99; BMI 30.9
--- NOTE | 2025-09-24 10:45 | CRLHL7_ITS ---
For Patients: As a result of the Century Cures Act, medical imaging exams and procedure reports are released immediately into your electronic medical record. You may view this report before your referring provider. If you have questions, please contact your health care provider. INDICATION: Pain and swelling COMPARISON: None. TECHNIQUE: Right upper extremity and neck venous ultrasound performed as well as ultrasound of left internal jugular vein including becerra scale/2D, color Doppler, and spectral Doppler imaging including spectral waveform analysis. FINDINGS: The internal jugular, innominate, subclavian, axillary, basilic, cephalic, and brachial veins were patent and negative for thrombus. The left internal jugular vein was also patent and negative for thrombus where seen. Remainder negative. IMPRESSION: No evidence for DVT in the right upper extremity and neck venous system. Dictated by Barry Mac MD @ 09/24/2025 11:59:00 AM (Electronically Signed)
--- NOTE | 2025-09-24 10:45 | ED.GENADULT ---
HPI - General Adult General Chief complaint: Extremity Pain/Injury, Upper Stated complaint: Pain in RT arm Time Seen by Provider: 09/24/25 10:29 History of Present Illness HPI narrative: Patient is a 40-year-old woman who recently had hysterectomy. She had an IV placed in the antecubital fossa on the right. Approximately a week later patient has developed pain and swelling in the distal biceps region proximal to the affected vein. Patient is no swelling of the puncture site. She has had no chest pain no shortness a breath orthopnea no PND no significant redness. She has moderate discomfort both at rest and with activity. No previous history of blood clot. Related Data Home Medications ?Medication ?Instructions ?Recorded ?Confirmed tirzepatide 2.5 mg/0.5 mL 2.5 mg subcut QWEEK 01/18/25 09/17/25 subcutaneous pen injector Previous Rx's ?Medication ?Instructions ?Recorded triamcinolone acetonide 0.1 % 1 applic topical BID #454 grams 05/13/24 topical cream levothyroxine 125 mcg tablet 125 mcg PO QDAY #90 tabs 08/16/25 fluocinonide 0.05 % topical 1 applic topical QDAY #60 mL 09/06/25 solution ibuprofen 600 mg tablet 600 mg PO Q6H #30 tabs 09/08/25 fluconazole 150 mg tablet 150 mg PO Q3D 2 doses #2 tabs 09/17/25 fluconazole 150 mg tablet 150 mg PO ONCE #1 tab 09/21/25 Allergies Allergy/AdvReac Type Severity Reaction Status Date / Time amoxicillin Allergy Mild Rash Verified 09/24/25 10:32 Review of Systems Status of ROS: Reports: 10 or more systems reviewed and unremarkable except as noted in History and below [facility] Medical History (Updated 09/24/25 @ 12:02 by Polo Montana MD) Psoriasis ?L40.9 - Psoriasis, unspecified (ICD-10) Acne ?L70.9 - Acne, unspecified (ICD-10) Patellar dislocation ?S83.006A - Unspecified dislocation of unspecified patella, initial encounter (ICD-10) Hypothyroidism ?E03.9 - Hypothyroidism, unspecified (ICD-10) History of abnormal cervical Papanicolaou smear (07/03/16) ?Z87.42 - Personal history of other diseases of the female genital tract (ICD-10) 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 - Other obesity due to excess calories (ICD-10) Surgical History History of ventral hernia repair ?Z98.890 - Other specified postprocedural states (ICD-10) ?Z87.19 - Personal history of other diseases of the digestive system (ICD-10) Vaginal delivery ?O80 - Encounter for full-term uncomplicated delivery (ICD-10) Family History Sister Alcohol dependence Bipolar 1 disorder Arthritis, rheumatoid Mother Breast cancer, Onset Age: 50 Colon cancer Diabetes Father Thyroid cancer High blood pressure Brother High blood pressure Social History Narrative: , 2 kids, Non smoker, Social EtOH What is your current living situation?: I presently have a place to live Problems where you live: no known problems Problems where you live details: na In the past 12 months, utilities in danger of being shut off: no In past 12 months, lack of transportation kept you from medical appts, meetings, work, or getting things needed for daily living: no In the past 12 mos, have been you worried that your food would run out before you had money to buy more?: never true In the past 12 mos, the food you bought just didn't last and you didn't have money to buy more?: never true Smoking Status: Never smoker How often do you have a drink containing alcohol: never AUDIT-C Alcohol total score: 0 Non-prescribed substance use: denies use Caffeine: Yes How often does anyone, including family, friends and others, physically hurt you: never How often does anyone, including family, friends and others, insult or talk down to you: never How often does anyone, including family, friends and others, threaten you with harm: never How often does anyone, including family, friends and others, scream or curse at you: never service: No Exam Narrative: Exam Narrative: EXAM GENERAL: Patient appears comfortable and well. EYES: No scleral icterus. ENT: Tympanic membranes and oropharynx normal. THYROID: no thyroid nodules or thyromegaly. LYMPH: No supraclavicular or cervical lymphadenopathy. SKIN: Visible skin seen during exam normal or with benign process only. EXT: Mild tenderness noted in the anterior surface of the biceps on the right with no other palpable abnormalities. HEART: Regular rate and rhythm with no murmurs, rubs, or gallops. LUNGS: Clear to auscultation bilaterally with no crackles or wheezes. ABD: Soft, non tender, non distended. PSYCH: Good eye contact, speech is not pressured. Const: Vital Signs, click to edit/add: Vital Signs - 24 hr 09/24/25 10:34 Temperature 98.7 F Pulse Rate [Pulse Oximeter] 84 Respiratory Rate 20 Blood Pressure [Le ft Upper Arm] 117/70 Pulse Oximetry 99 Oxygen Delivery Me thod Room Air Course Course ED Course: Patient seen examined venous ultrasound right arm ordered. Vital Signs Vital signs: Initial Vital Signs Temperature 98.7 F 09/24/25 10:34 Temperature Source Temporal Artery Scan 09/24/25 10:34 Pulse Rate 84 09/24/25 10:34 Respiratory Rate 20 09/24/25 10:34 Blood Pressure 117/70 09/24/25 10:34 Blood Pressure Mean 85 09/24/25 10:34 Pulse Oximetry 99 09/24/25 10:34 Oxygen Delivery Method Room Air 09/24/25 10:34 Vital Signs Temperature 98.7 F 09/24/25 10:34 Pulse Rate 84 09/24/25 10:34 Respiratory Rate 20 09/24/25 10:34 Blood Pressure 117/70 09/24/25 10:34 Pulse Oximetry 99 09/24/25 10:34 Oxygen Delivery Method Room Air 09/24/25 10:34 Temperature 98.7 F 09/24/25 10:34 Pulse Rate 84 09/24/25 10:34 Respiratory Rate 20 09/24/25 10:34 Blood Pressure 117/70 09/24/25 10:34 Pulse Oximetry 99 09/24/25 10:34 Oxygen Delivery Method Room Air 09/24/25 10:34 Medical Decision Making MDM Narrative Medical decision making narrative: Patient is a 40-year-old woman who comes in today with right arm pain approximately a week after having had IV placed. There was some concern of DVT. Ultrasound is negative. I do not really see or feel much on exam. At this time I did recommend continue ibuprofen rotation of he nice and follow-up with her primary physician as needed. Discharge Plan Discharge Clinical Impression: Muscle strain Patient Disposition: Home, Self-Care Condition: Stable Additional Instructions: Rotate heat and ice Ibuprofen as previous Advanced activity as tolerated. Follow-up with your doctor as needed. Activity Level: No Restrictions Discharge Diet: Regular Prescriptions: No Action triamcinolone acetonide 0.1 % cream 1 applic topical BID Qty: 454 1RF tirzepatide 2.5 mg/0.5 mL pen injector 2.5 mg subcut QWEEK Rx Instructions: for 4 weeks levothyroxine 125 mcg tablet 125 mcg PO QDAY Qty: 90 3RF fluocinonide 0.05 % solution 1 applic topical QDAY Qty: 60 1RF fluconazole 150 mg tablet 150 mg PO Q3D Qty: 2 0RF ibuprofen 600 mg Tablet 600 mg PO Q6H Qty: 30 0RF fluconazole 150 mg tablet 150 mg PO ONCE Qty: 1 0RF Rx Instructions: as a single dose Follow Up/Referrals: Barry Clark MD [Primary Care Provider, Family Practice] Stand Alone Forms: [employer] Info Instructions
[2025-09-24 12:17] VITALS: BP 110/68; PULSE 80; RESP 20
== END 2025-09-24 12:17 | disposition home or self-care (01) ==
PROVIDERS: Emergency Provider Internal Medicine; PCP Family Medicine
DX: S46.211A Strain of muscle, fascia and tendon of other parts of biceps, right arm, initial encounter (principal); Z95.828 Presence of other vascular implants and grafts
CPT/HCPCS: 93971; 99283

== ENCOUNTER 2025-10-08 10:35 | Outpatient (CLI) | payer BC, SELFPAY ==
[2025-10-08 14:19] LABS: Trichomonas No Trichomonas Seen (None Seen)
== END 2025-10-08 10:36 | disposition home or self-care (01) ==
LOC: FBOREF 10:35
PROVIDERS: PCP Family Medicine; Visit Provider Family Medicine
DX: N76.0 Acute vaginitis (principal); B96.89 Other specified bacterial agents as the cause of diseases classified elsewhere; B37.31 Acute candidiasis of vulva and vagina
CPT/HCPCS: 87210

== ENCOUNTER 2025-10-22 10:38 | Outpatient (CLI) | payer BC, SELFPAY | END 2025-10-22 10:39 | disposition home or self-care (01) | LOC: NFLDREF 10-29 07:08 | PROVIDERS: PCP Family Medicine; Referring Provider Family Medicine; Visit Provider Obstetrics & Gynecology | DX: R30.9 Painful micturition, unspecified (principal) | CPT/HCPCS: 87086 ==